=== PATIENT | male | born 1995 | race Caucasian/White ===

== ENCOUNTER 2017-09-28 00:54 | Emergency (ER) | payer OTHER ==
[~2017-09-28] VITALS: Ht 170 cm; Wt 71.8 kg
[~2017-09-28 00:54] MED LIST: EFFEXOR XR75 MG/CAP PO; PREDNISONE20 MG PO
[2017-09-28 00:58] VITALS: BP 132/81; TEMP 97.8
[2017-09-28] MEDS ORDERED: EFFEXOR 75M75 MG/TAB PO (01:29)
[2017-09-28 03:00] VITALS: PULSE 78
== END 2017-09-28 02:50 | disposition home or self-care (01) ==
LOC: COL.ER 00:54
DX: F19.939 Other psychoactive substance use, unspecified with withdrawal, unspecified (principal)